=== PATIENT | male | born 1990 | race Caucasian/White ===

== ENCOUNTER → 2019-01-07 | Outpatient (CLI) | payer BC ==
--- NOTE | 2019-01-07 09:22 | XR ---
EXAMINATION TYPE: XR hand complete RT DATE OF EXAM: 01/07/2019 COMPARISON: None HISTORY: Pain fifth metacarpal area TECHNIQUE: Three-view right hand FINDINGS: There is a comminuted fracture in the proximal fifth metacarpal. Old fifth metacarpal fract ure is also evident. Soft tissues are diffusely prominent. IMPRESSION: 1. Comminuted fracture proximal fifth metacarpal with intra-articular extension.
== END ==
LOC: RADXRMAIN 09:05
PROVIDERS: ATTEND Physician Assistant
DX: S62.396A Other fracture of fifth metacarpal bone, right hand, initial encounter for closed fracture (principal)

== ENCOUNTER → 2019-03-03 | Outpatient (CLI) | payer BC ==
--- NOTE | 2019-03-03 11:01 | XR ---
EXAMINATION TYPE: XR hand limited RT DATE OF EXAM: 03/03/2019 CLINICAL HISTORY: Right hand pain, particularly of the fifth digit. No TECHNIQUE: Frontal, lateral and oblique images of the right hand are obtained. COMPARISON: None. FINDINGS: There is no acute fracture/dislocation evident in the right hand. The previously seen comm inuted, intra-articular proximal fifth metacarpal fracture on 01/07/2019 has developed interval callus formation and sclerosis although the fracture lines remain visible, current incomplete union. Old fra cture deformity of the diaphysis of the fifth metacarpal is also seen. Probable ossicle of the third proximal metacarpal phalangeal joint on the lateral view. The joint spaces in the right hand appear w ithin normal limits. The overlying soft tissue appears unremarkable. IMPRESSION: 1. Healing fracture deformity of the base of the fifth metacarpal of the right hand, currently incomp letely united. Additional old fracture deformity of the fifth metacarpal diaphysis is healed. 2. No new acute fracture or dislocation in the right hand.
== END | disposition home or self-care (01) ==
LOC: RADXRMAIN 08:18
PROVIDERS: ATTEND Orthopaedic Surgery
DX: S62.316D Displaced fracture of base of fifth metacarpal bone, right hand, subsequent encounter for fracture with routine healing (principal)

== ENCOUNTER → 2021-07-22 | Outpatient (CLI) | payer BC, MEDICAID ==
--- NOTE | 2021-07-23 08:38 | US ---
EXAMINATION TYPE: US scrotum with doppler. Grayscale and color Doppler Duplex imaging performed of davon gutierrez scrotum. 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 Patient states he and his partner have had difficulty trying to get EXAM MEASUREMENTS: TESTICLES: Right Testicle: 4.8 x 2.1 x 2.8 cm Left Testicle: 4.4 x 2.0 x 2.7 cm EPIDIDYMIS HEAD: Right Epididymis: 0.9 x 0.8 x 0.9 cm Left Epididymis: 0.7 x 0.7 x 0.8 cm Doppler performed to assess for testicular vascularity; good bilateral color flow and waveforms are s een. There is no evidence of testicular torsion. Presence of hydroceles: no Presence of varicoceles: no There appears to be multiple micro calcifications within bilateral testicles. The left testicle appea rs to have somewhat irregular contour. IMPRESSION: 1. No acute ultrasound abnormality. 2. Note is made of possible microlithiasis which can be associated with increase incident of neoplasm .
== END | disposition home or self-care (01) ==
LOC: RADUSWWP 16:43
PROVIDERS: ATTEND Obstetrics & Gynecology Reproductive Endocrinology
DX: N46.11 Organic oligospermia (principal)
CPT/HCPCS: 76870; 93975